=== PATIENT | female | born 1970 | race Caucasian/White ===

== ENCOUNTER 2017-01-08 14:16 | Emergency (ER) | payer OTHER ==
[~2017-01-08] VITALS: Ht 160 cm; Wt 78.6 kg
[2017-01-08 14:19] VITALS: BP 125/80; PULSE 78; RESP 16; O2SAT 98
--- NOTE | 2017-01-08 15:59 | ED.REPORT ---
HPI-General Illness Date of Service Jan 08, 2017 ED Provider: El Farrell DO The pt is a 46 y/o female with hx of hysterectomy, oophorectomy, and chronic chostiocondritis, and cholecystectomy who presents to the ED from complaining of chest pain. She c/o associated SOB, dyspnea, bilateral calf pain , and leg swelling. Pt states that her symptoms do that feel similar to her chostiocondritis. The pt admits to diarrhea, but believes it is secondary to post-surgical medication. She denies vomiting, cough, fever, chills, and any other symptoms. The pt reports that she had a oophorectomy 3 weeks ago, followed by a long car ride to [place]. Pt denies a history of PE or DVT. The pt presented to with her symptoms today and she was referred to the ED for further evaluation after receiving and x-ray. Nursing Notes Stated Complaint: RIGHT LEG PAIN/SENT BY URGENT CARE Chief Complaint: General Complaint Nursing Notes Reviewed: Yes Allergies: Coded Allergies: No Known Allergies (Verified , 02/05/07) General Time Seen by MD: 15:58 Chief Complaint Chest pain Hx Obtained From: Patient Arrived By: Walk-in Sudden in Onset?: No Onset Occurred: Yesterday Symptom Duration: Constant Location: : Chest: Leg left: Leg right Quality: Painful Radiation: : Does not radiate Severity: Current: Moderate Severity: Maximum: Moderate Recent Healthcare: No recent hospitalization, Recent doctor visit Similar Sx Previous: No Past Medical History Past Medical History Chronic chostiocondritis Denies PE and DVT Past Surgical History oophorectomy Reports: Cholecystectomy, Hysterectomy Family History Father first [place] at mid/late 60 Smoking History Never Smoker Social History Alcohol Use: Denies alcohol use Drug Use: Denies drug use Other Social History: Good social support Ambulatory Status Independent Review of Systems Full Review of Systems Constitutional: Denies: Chills, Fever Respiratory: Reports: Dyspnea on exertion, Shortness of breath, Denies: Non-productive cough Cardiovascular: Reports: Chest pain GI: Reports: Diarrhea, Denies: Vomiting Musculoskeletal: Reports: Extremity pain Complete sys rev & neg: except as marked. Physical Exam Vital Signs Vital Signs Date Time Temp Pulse Resp B/P Pulse Ox O2 Delivery O2 Flow Rate FiO2 01/08/17 17:51 85 18 98/69 99 Room Air 01/08/17 14:19 36.6 78 16 125/80 98 Room Air Initial VS: Reviewed Head / Eyes: Atraumatic, Normocephalic Neck: Supple, Full range of motion Respiratory: Breath sounds normal, Clear to auscultation, No respiratory distress Cardiovascular: Regular rate & rhythm, Heart sounds normal, Intact distal pulses Abdomen / GI: Soft, Non-tender Extremities: Vascular intact, Neuro intact Skin: Warm, Dry, No cyanosis Neurologic: Alert, Oriented, Nonfocal Psychiatric: Mood/affect normal, Behavior normal General/Constitutional: Awake, Alert Lower Extremity / Pelvis / MS: Atraumatic, Full range of motion, Neurologic intact, Vascular intact Lorraine's sign negative bilaterally Interpretation & Diagnostics CT ANGIO CHEST PULMONARY EMBOLISM: IMPRESSION: No pulmonary embolus. Dictated by: Kayy Orozco MD, PhD on 01/08/2017 at 18:15 Lab Results Interpretation Result Diagram: 01/08/17 1651 01/08/17 1651 Test 01/08/17 16:51 01/08/17 16:53 01/08/17 16:55 White Blood Count 7.2th/mm3 (3.8-10.1) Red Blood Count 4.95mil/mm3 (3.90-5.20) Hemoglobin 15.0g/dL (12.0-15.6) Hematocrit 42.8% (35.0-46.0) Mean Corpuscular Volume 86.5fL (81-100) Mean Corpuscular Hemoglobin 30.3pg (27.0-35.0) Mean Corpuscular Hemoglobin Concent 35.0% (32.0-37.0) Red Cell Distribution Width 12.6% (12.3-15.4) Platelet Count 281bil/L (150-400) Neutrophils (%) (Auto) 71.9% (40-74) Lymphocytes (%) (Auto) 20.1% (14-46) Monocytes (%) (Auto) 7.0% (4-12) Eosinophils (%) (Auto) 0.6% (0-5) Basophils (%) (Auto) 0.3% (0-3) D-Dimer 0.61mg/L FEU (<0.50) Sodium Level 138mEq/L (134-144) Potassium Level 4.1mEq/L (3.5-5.2) Chloride Level 99mEq/L (97-108) Carbon Dioxide Level 24mmol/L (18-29) Blood Urea Nitrogen 8mg/dL (6-24) Creatinine 0.59mg/dL (0.57-1.00) Estimat Glomerular Filtration Rate 157mL/min (>59) Glucose Level 96mg/dL (60-99) Calcium Level 10.1mg/dL (8.5-10.1) Magnesium Level 2.2mg/dL (1.6-2.6) Total Bilirubin 0.4mg/dL (0.0-1.2) Aspartate Amino Transf (AST/SGOT) 19U/L (0-50) Alanine Aminotransferase (ALT/SGPT) 19U/L (0-32) Alkaline Phosphatase 59U/L (25-150) Troponin T < 0.010ug/L (0.0-0.011) Total Protein 8.3g/dL (6.4-8.4) Albumin 4.5g/dL (3.4-5.0) Hold [place] Top Tube Received (Received) Hold Urine Received (Received) ECG Interpretation Time: 16:22 Interpreted by: ED physician Normal ECG Interpretation: Normal ECG w/ rate of... (70) Re-Eval/Medical Decision Med Decision/Clinical Course No evidence of acute coronary syndrome or pulmonary embolism. Return and follow-up precautions given. Source of Hx: Old records Time of Eval: 18:25 Re-Evaluation/Progress Note: Pt rechecked. Informed pt of plan for discharge. Pt understands and agrees with plan for discharge. F/U instructions and RTER warnings given. All questions addressed. Counseled Regarding: Diagnosis, Lab results Discharge & Departure Primary Impression: Chest pain Chest pain type: unspecified Qualified Code: R07.9 - Chest pain, unspecified Disposition: Home Discharge Condition All VS Reviewed: Yes Condition: Stable Patient Instructions: Chest Pain (ED) Additional Instructions: Thank you for trusting us with your care today. Your CT scan today is reassuring and pulmonary embolism was not identified. Call your primary care provider tomorrow for a follow up appointment this week. Return to the Emergency Department for any new or concerning symptoms. Referrals: An De La Cruz MD (PCP) Scribe Attestation Portions of this note were transcribed by Debbie Glez and Latosha Weston. I , Dr. Farrell personally performed the history, physical exam and medical decision-making; I reviewed and confirmed the accuracy of the information in the transcribed note. Signed by: Debbie Glez and Latosha Weston, Dominicibpetty, 01/08/17. copies to: An De La Cruz MD, Timothy S DO Jan 08, 2017 15:59 Debbie Glez Jan 08, 2017 16:22 Latosha Vela Jan 08, 2017 17:31
[2017-01-08] MEDS ORDERED: Ondansetron 2 mg/mL 2 mL Inj IVPUSH ONE (16:10)
[2017-01-08 16:55] LABS: BASOPHILS % (AUTO) 0.3 % (0-3); EOSINOPHILS % (AUTO) 0.6 % (0-5); Mean Corpuscular Hemoglobin 30.3 pg (27.0-35.0); Mean Corpuscular Volume 86.5 fL (81-100); NEUTROPHILS % (AUTO) 71.9 % (40-74); Platelet Count 281 bil/L (150-400)
[2017-01-08 17:28] LABS: TROPONIN T < 0.010 ug/L (0.0-0.011)
[2017-01-08 17:37] LABS: Magnesium 2.2 mg/dL (1.6-2.6)
[2017-01-08 17:51] VITALS: BP 98/69; PULSE 85; RESP 18; O2SAT 99
--- NOTE | 2017-01-08 18:19 | DRSVH ---
PROCEDURE: CT ANGIO CHEST PULMONARY EMBOLISM ([id number]) INDICATIONS: recent surgery, chest pain, dyspnea on exertion TECHNIQUE: After the administration of intravenous contrast, 2 mm thick sections acquired from the pulmonary api shamika to the posterior costophrenic angles. 3-dimensional maximum intensity projection (MIP) coronal a nd sagittal reformats were then acquired through the thorax. For radiation dose reduction, the follo wing was used: automated exposure control, adjustment of mA and/or kV according to patient size. COMPARISON: None. FINDINGS: Image quality: Excellent. Pulmonary arteries: Pulmonary arteries are normal in size, and demonstrate no intraluminal filling d efects to suggest central pulmonary embolism. Lungs and pleura: Lungs are clear. No pleural effusions or pneumothorax. Central and peripheral ai rways are patent. Mediastinum: Heart size is normal, without pericardial effusion. No mediastinal or hilar adenopathy . Thoracic aorta is normal in caliber and enhancement. Esophagus is normal in caliber, without hiat al hernia. Bones and chest wall: No suspicious bony lesions. Ribs and thoracic spine appear intact throughout. Thyroid gland is within normal limits. No axillary or supraclavicular adenopathy. Abdomen: Gallbladder is absent. Visualized upper abdominal solid organs appear normal in the early arterial phase of enhancement. IMPRESSION: No pulmonary embolus. Dictated by: Kayy Orozco MD, PhD on 01/08/2017 at 18:15 Approved by: Kayy Orozco MD, PhD on 01/08/2017 at 18:18
[2017-01-08 19:21] VITALS: BP 129/85; PULSE 77; RESP 18; O2SAT 100
== END 2017-01-08 19:24 | disposition home or self-care (01) ==
LOC: SED 14:16
DX: R07.9 Chest pain, unspecified (principal); R06.02 Shortness of breath; M79.661 Pain in right lower leg; M79.662 Pain in left lower leg; M79.89 Other specified soft tissue disorders; R19.7 Diarrhea, unspecified; Z90.49 Acquired absence of other specified parts of digestive tract
CPT/HCPCS: 36415; 71275; 80053; 83735; 84484; 85025; 85378; 93005; 99285; Q9967